=== PATIENT | female | born 1975 | race Hispanic/Latino ===

== ENCOUNTER 2019-03-14 09:27 | Emergency (ER) | payer OTHER ==
[2019-03-14] MEDS ORDERED: SODIUM CHLORIDE 0.9% 1000ML 1,000 ML IV ONE (09:40)
[2019-03-14] MEDS ORDERED: ONDANSETRON HCL 4 MG/2 ML VIAL ONE (09:45)
[2019-03-14 10:04] LABS: BASOPHILS % (AUTO) 1.1 % (0.0-5.0); EOSINOPHILS % (AUTO) 1.8 % (0.0-8.0); HEMATOCRIT 40.3 % (36-48); LYMPHOCYTES % (AUTO) 24.3 % (21.0-51.0); MEAN CORPUSCULAR HGB CONC 33.5 g/dL (32.0-36.0); MEAN CORPUSCULAR VOLUME 89.5 fL (79-99); MONOCYTES % (AUTO) 15.4 % (3.0-13.0); NEUTROPHILS % (AUTO) 57.4 % (40.0-77.0); PLATELET COUNT (AUTO) 207 K/uL (130-400); RED CELL DISTRIBUTION WIDTH 13.8 % (11.0-15.5); WHITE BLOOD COUNT (AUTO) 4.7 K/uL (4.8-10.8)
[2019-03-14 10:19] LABS: APPEARANCE,URINE Clear (CLEAR); BILIRUBIN,URINE Negative (NEGATIVE); COLOR,URINE Yellow (YELLOW); GLUCOSE, URINE (UA) Negative (NEGATIVE); KETONES,URINE Negative (NEGATIVE); LEUKOCYTE ESTERASE ,URINE Small (NEGATIVE); NITRATE,URINE Negative (NEGATIVE); OCCULT BLOOD,URINE Negative (NEGATIVE); PH,URINE 5.5 (5.0-8.0); PROTEIN,URINE Negative (NEGATIVE); UROBILINOGEN,URINE 0.2 mg/dL (0.2-1.0)
[2019-03-14 10:26] LABS: INR 0.95 (0.85-1.15); PARTIAL THROMBOPLASTIN TIME 30.3 SEC (26.3-35.5); PROTHROMBIN TIME 9.8 SEC (9.6-11.6)
[2019-03-14 10:28] LABS: BACTERIA,URINE Rare /HPF (None Seen); RBC,URINE 0-1 /HPF (0-1); WBC,URINE 0-1 /HPF (0-1)
[2019-03-14 10:29] LABS: POTASSIUM 3.7 mmol/L (3.5-5.1)
[2019-03-14 10:35] LABS: ALBUMIN 3.9 g/dL (3.5-5.0); BILIRUBIN,TOTAL 0.7 mg/dL (0.2-1.0); TOTAL PROTEIN, SERUM 8.6 g/dL (6.0-8.3)
[2019-03-14 11:37] LABS: B-TYPE NATRIURETIC PEPTIDE 16 pg/mL (0-100)
[2019-03-14] MEDS ORDERED: HYOSCYAMINE SULFATE 0.125 MG TAB.SUBL SL ONE (12:03)
[2019-03-14] MEDS ORDERED: ACETAMINOPHEN 325 MG TAB ONE (12:09)
[2019-03-14] MEDS ORDERED: TRAMADOL HCL 50 MG TABLET ONE (13:08)
== END 2019-03-14 13:38 | disposition home or self-care (01) ==
LOC: EDH 09:27
DX: A09 Infectious gastroenteritis and colitis, unspecified (principal); L93.0 Discoid lupus erythematosus; E07.9 Disorder of thyroid, unspecified; J45.909 Unspecified asthma, uncomplicated; I50.9 Heart failure, unspecified; Z88.1 Allergy status to other antibiotic agents; Z88.8 Allergy status to other drugs, medicaments and biological substances; Z88.4 Allergy status to anesthetic agent
CPT/HCPCS: 36415; 80053; 81001; 82150; 82550; 83690; 83880; 84484; 85025; 85610; 85651; 85730; 86140; 87804 ×2; 93005; 96361; 96374; 99285; J2405; J7030

== ENCOUNTER → 2019-03-19 | Outpatient (CLI) | payer OTHER | END | disposition home or self-care (01) | LOC: RAH 13:38 | PROVIDERS: ATTEND Internal Medicine | DX: I51.7 Cardiomegaly (principal); K76.89 Other specified diseases of liver | CPT/HCPCS: 71250 ==

== ENCOUNTER 2019-09-06 09:45 | Emergency (ER) | payer OTHER ==
[2019-09-06 10:10] LABS: APPEARANCE,URINE CLOUDY (CLEAR); BILIRUBIN,URINE NEGATIVE (NEGATIVE); COLOR,URINE YELLOW (YELLOW); GLUCOSE, URINE (UA) NEGATIVE (NEGATIVE); KETONES,URINE NEGATIVE (NEGATIVE); LEUKOCYTE ESTERASE ,URINE MODERATE (NEGATIVE); NITRATE,URINE POSITIVE (NEGATIVE); OCCULT BLOOD,URINE TRACE-INTACT (NEGATIVE); PH,URINE 5.5 (5.0-8.0); PROTEIN,URINE TRACE mg/dL (NEGATIVE); UROBILINOGEN,URINE 0.2 mg/dL (0.2-1.0)
[2019-09-06] MEDS ORDERED: KETOROLAC TROMETHAMINE 30MG/ML ONE (10:19)
[2019-09-06 10:27] LABS: HCG,QUAL RESULT NEGATIVE (NEGATIVE)
[2019-09-06 10:44] LABS: BACTERIA,URINE Rare /HPF (None Seen); RBC,URINE 0-1 /HPF (0-1); SQUAMOUS EPITHELIAL CELL,UR Rare /HPF (0-2); WBC,URINE 51-100 /HPF (0-1)
[2019-09-06 10:45] LABS: BASOPHILS % (AUTO) 0.2 % (0.0-5.0); EOSINOPHILS % (AUTO) 0.4 % (0.0-8.0); HEMATOCRIT 37.9 % (36-48); LYMPHOCYTES % (AUTO) 5.8 % (21.0-51.0); MEAN CORPUSCULAR HEMOGLOBIN 29.6 pg (27.0-33.0); MEAN CORPUSCULAR VOLUME 89.6 fL (79-99); MONOCYTES % (AUTO) 10.6 % (3.0-13.0); NEUTROPHILS % (AUTO) 82.8 % (40.0-77.0); PLATELET COUNT (AUTO) 242 K/uL (130-400); RED BLOOD CELL COUNT(AUTO) 4.23 MIL/uL (4.00-5.50); RED CELL DISTRIBUTION WIDTH 12.3 % (11.0-15.5); WHITE BLOOD COUNT (AUTO) 10.9 K/uL (4.8-10.8)
[2019-09-06 10:51] LABS: CREATININE 1.1 mg/dL (0.5-1.5); POTASSIUM 3.7 mmol/L (3.5-5.1)
[2019-09-06 11:05] LABS: THYROID STIMULATING HORMONE 8.78 uIU/mL (0.36-3.74)
[2019-09-06] MEDS ORDERED: CIPROFLOXACIN 500 MG PO SCH (12:00)
[2019-09-09] MEDS ORDERED: LEVO100T12 PO (11:55)
[2019-09-09] MEDS ORDERED: HYDR200T4 PO (11:55)
[2019-09-09] MEDS ORDERED: MYCO500T PO (11:55)
[2019-09-09] MEDS ORDERED: ERGO500014 PO (11:55)
[2019-09-09] MEDS ORDERED: TRAM50TA4 PO (11:55)
[2019-09-09] MEDS ORDERED: AEC81 PO (11:55)
[2019-09-09] MEDS ORDERED: CARV6.25 PO (11:55)
[2019-09-09] MEDS ORDERED: CYCL10TA7 PO (11:55)
[2019-09-09] MEDS ORDERED: PANT40TA25 PO (11:55)
[2019-09-09] MEDS ORDERED: ONDA4TAB10 PO (11:55)
[2019-09-09] MEDS ORDERED: CETI10TA57 PO (11:55)
== END 2019-09-06 12:09 | disposition home or self-care (01) ==
LOC: EDH 09:45
DX: N13.6 Pyonephrosis (principal); I50.9 Heart failure, unspecified; J45.909 Unspecified asthma, uncomplicated; M32.9 Systemic lupus erythematosus, unspecified; E07.9 Disorder of thyroid, unspecified; Z88.6 Allergy status to analgesic agent; Z88.8 Allergy status to other drugs, medicaments and biological substances
CPT/HCPCS: 36415; 74176; 80048; 81001; 81025; 84443; 85025; 87077; 87088; 87186; 96374; 99284; J1885

== ENCOUNTER 2019-09-09 07:53 | Inpatient (IN) | payer OTHER ==
[~2019-09-09] VITALS: Ht 157.5 cm; Wt 84.8 kg
[2019-09-09 08:39] LABS: BASOPHILS % (AUTO) 0.1 % (0.0-5.0); EOSINOPHILS % (AUTO) 0.8 % (0.0-8.0); HEMATOCRIT 33.4 % (36-48); MEAN CORPUSCULAR HEMOGLOBIN 29.1 pg (27.0-33.0); MEAN CORPUSCULAR HGB CONC 33.8 g/dL (32.0-36.0); MEAN CORPUSCULAR VOLUME 86.1 fL (79-99); MONOCYTES % (AUTO) 10.7 % (3.0-13.0); NEUTROPHILS % (AUTO) 85.8 % (40.0-77.0); PLATELET COUNT (AUTO) 234 K/uL (130-400); RED BLOOD CELL COUNT(AUTO) 3.88 MIL/uL (4.00-5.50); RED CELL DISTRIBUTION WIDTH 12.3 % (11.0-15.5); WHITE BLOOD COUNT (AUTO) 14.2 K/uL (4.8-10.8)
[2019-09-09] MEDS ORDERED: ACETAMINOPHEN EXTRA STRENGTH 500 MG TABLET ONE (08:40)
[2019-09-09] MEDS ORDERED: ONDANSETRON HCL 4 MG/2 ML VIAL ONE (08:40)
[2019-09-09] MEDS ORDERED: FAMOTIDINE/PF 20 MG/2 ML VIAL IV ONE (08:41)
[2019-09-09] MEDS ORDERED: TRAMADOL HCL 50 MG TABLET ONE (08:41)
[2019-09-09 08:42] LABS: APPEARANCE,URINE CLOUDY (CLEAR); BILIRUBIN,URINE NEGATIVE (NEGATIVE); COLOR,URINE YELLOW (YELLOW); GLUCOSE, URINE (UA) NEGATIVE (NEGATIVE); KETONES,URINE NEGATIVE (NEGATIVE); LEUKOCYTE ESTERASE ,URINE MODERATE (NEGATIVE); NITRATE,URINE POSITIVE (NEGATIVE); OCCULT BLOOD,URINE NEGATIVE (NEGATIVE); PROTEIN,URINE 100 mg/dL (NEGATIVE)
[2019-09-09 08:47] LABS: CARBON DIOXIDE 22 mmol/L (21-32); CHLORIDE 96 mmol/L (101-111); CREATININE 1.2 mg/dL (0.5-1.5); GLOMERULAR FILTR. RATE CALC 52 mL/min (>60); GLUCOSE,RANDOM 143 mg/dL (70-105); POTASSIUM 3.3 mmol/L (3.5-5.1); SODIUM SERUM 131 mmol/L (136-145); UREA NITROGEN, BLOOD 7 mg/dL (7-18)
[2019-09-09 08:48] LABS: INR 0.98 (0.85-1.15); PARTIAL THROMBOPLASTIN TIME 40.6 SEC (26.3-35.5); PROTHROMBIN TIME 10.6 SEC (9.6-11.6)
[2019-09-09 08:58] LABS: ALANINE AMINOTRANSFERASE 18 U/L (12-78); ALBUMIN 2.9 g/dL (3.5-5.0); ASPARTATE AMINOTRANSFERASE 21 U/L (10-37); BILIRUBIN,TOTAL 0.7 mg/dL (0.2-1.0); CREATINE KINASE, TOTAL 28 U/L (21-232); MYOGLOBIN 32 ng/mL (10-92); TROPONIN I < 0.04 ng/mL (0.00-0.06)
[2019-09-09 09:19] LABS: BACTERIA,URINE Many /HPF (None Seen); RBC,URINE 0-1 /HPF (0-1); WBC,URINE TNTC /HPF (0-1)
[2019-09-09] MEDS ORDERED: NITROFURANTOIN MONOHYD/M-CRYST 100 MG CAPSULE PO SCH (10:13)
[2019-09-09] MEDS ORDERED: NITROFURANTOIN MONOHYD/M-CRYST 100 MG CAPSULE PO ONE (10:15)
[2019-09-09] MEDS ORDERED: MEROPENEM 1 GM VIAL ONE (10:32)
[2019-09-09] MEDS ORDERED: DiphenhydrAMINE HCL 50 MG/ML VIAL ONE ×2 (10:47→13:49)
[2019-09-09] MEDS: SODIUM CHLORIDE 0.9% 1000ML 1,000 ML IV SCH (11:00)
[2019-09-09 11:35] VITALS: BP 113/75
[2019-09-09] MEDS ORDERED: CETI10TA57 PO ×2 (11:55)
[2019-09-09] MEDS ORDERED: CARV6.25 PO ×2 (11:55)
[2019-09-09] MEDS ORDERED: ERGO500014 PO ×2 (11:55)
[2019-09-09] MEDS ORDERED: TRAM50TA4 PO ×2 (11:55)
[2019-09-09] MEDS ORDERED: CYCL10TA7 PO ×2 (11:55)
[2019-09-09] MEDS ORDERED: LEVO100T12 PO ×2 (11:55)
[2019-09-09] MEDS ORDERED: HYDR200T4 PO ×2 (11:55)
[2019-09-09] MEDS ORDERED: MYCO500T PO ×2 (11:55)
[2019-09-09] MEDS ORDERED: ONDA4TAB10 PO ×2 (11:55)
[2019-09-09] MEDS ORDERED: AEC81 PO ×2 (11:55)
[2019-09-09] MEDS ORDERED: PANT40TA54 PO ×2 (11:55)
[2019-09-09] MEDS ORDERED: CYCLOBENZAPRINE HCL 10 MG TABLET PO PRN (13:30)
--- NOTE | 2019-09-09 13:40 | NUR ---
PATIENT C/O SEVERE CRAMPING TO BILATERAL LOWER EXT, POTASSIUM 3.3, PATIENT SHIVERING, TEMP 98.6, SPOKE WITH DR. SCHNEIDER NEW ORDER REPLACE POTASSIUM PER PROTOCOL,
--- NOTE | 2019-09-09 13:40 | NUR ---
PER DR. SCHNEIDER RESUME ALL HOME MEDS
[2019-09-09] MEDS ORDERED: POTASSIUM CHLORIDE 20MEQ/100ML 100 ML IV PRN (13:45)
[2019-09-09] MEDS ORDERED: DiphenhydrAMINE HCL 50 MG/ML VIAL IV SCH (13:45)
--- NOTE | 2019-09-09 13:45 | NUR ---
SPOKE WITH DR. SNWO MADE AWARE PATIENT C/O BILATERAL LOWER EXT CRAMPS, CHILLS, NO FEVER. PATIENT STATES SHE STARTED FEELING THIS WAY AFTER DOSE OF MERREM. PER DR. SNOW THIS IS NOT AN ADVERSE REACTION TO MERREM, GIVE BENADRYL 25 IV X 1, MERREM 1GM IV Q8, D/C MACROBID
[2019-09-09] MEDS ORDERED: PHARMACY COMMUNICATION MISC SCH (14:30)
[2019-09-09] MEDS: POTASSIUM CHLORIDE 20 MEQ ERTAB PO PRN ×2 (15:36→17:36)
[2019-09-09 16:00] VITALS: BP 106/66
[2019-09-09] MEDS: MEROPENEM 1 GM VIAL IVP SCH (17:38)
[2019-09-09 20:00] VITALS: BP 98/59
[2019-09-09] MEDS: PANTOPRAZOLE SODIUM 40 MG TABLET.DR PO SCH (20:25)
[2019-09-09] MEDS: CARVEDILOL 6.25 MG TABLET PO SCH (20:25)
[2019-09-09] MEDS: HYDROXYCHLOROQUINE SULFATE 200 MG TAB PO SCH (20:26)
[2019-09-09] MEDS: MYCOPHENOLATE MOFETIL 250 MG CAPSULE PO SCH (20:30)
[2019-09-09 23:42] VITALS: BP 90/57
[2019-09-10] MEDS: MEROPENEM 1 GM VIAL IVP SCH ×3 (02:03→18:04)
[2019-09-10 03:46] VITALS: BP 101/62
[2019-09-10 05:30] LABS: BASOPHILS % (AUTO) 0.2 % (0.0-5.0); EOSINOPHILS % (AUTO) 0.3 % (0.0-8.0); HEMATOCRIT 30.2 % (36-48); LYMPHOCYTES % (AUTO) 5.4 % (21.0-51.0); MEAN CORPUSCULAR HEMOGLOBIN 28.8 pg (27.0-33.0); MEAN CORPUSCULAR HGB CONC 32.8 g/dL (32.0-36.0); MEAN CORPUSCULAR VOLUME 87.8 fL (79-99); MONOCYTES % (AUTO) 14.5 % (3.0-13.0); NEUTROPHILS % (AUTO) 79.3 % (40.0-77.0); PLATELET COUNT (AUTO) 225 K/uL (130-400); RED BLOOD CELL COUNT(AUTO) 3.44 MIL/uL (4.00-5.50); RED CELL DISTRIBUTION WIDTH 12.9 % (11.0-15.5); WHITE BLOOD COUNT (AUTO) 12.2 K/uL (4.8-10.8)
[2019-09-10 05:33] LABS: POTASSIUM 3.5 mmol/L (3.5-5.1)
[2019-09-10] MEDS: ASPIRIN 81 MG EC TAB PO SCH (08:38)
[2019-09-10] MEDS: LEVOTHYROXINE 100 MCG TABLET PO SCH (08:39)
[2019-09-10] MEDS: HYDROXYCHLOROQUINE SULFATE 200 MG TAB PO SCH ×2 (08:39→20:53)
[2019-09-10] MEDS: CETIRIZINE HCL 5 MG TABLET PO SCH (08:39)
[2019-09-10] MEDS: CARVEDILOL 6.25 MG TABLET PO SCH ×2 (08:40→20:54)
[2019-09-10] MEDS ORDERED: PANTOPRAZOLE SODIUM 40 MG TABLET.DR PO SCH (09:00)
[2019-09-10] MEDS ORDERED: ONDANSETRON ODT 4 MG TAB PO SCH (09:00)
[2019-09-10 09:10] VITALS: BP 107/66
[2019-09-10] MEDS: MYCOPHENOLATE MOFETIL 250 MG CAPSULE PO SCH ×2 (10:22→20:53)
[2019-09-10] MEDS: POTASSIUM CHLORIDE 20 MEQ ERTAB PO PRN ×2 (10:47→15:43)
[2019-09-10] MEDS: TRAMADOL HCL 50 MG TABLET PO PRN ×2 (11:33→20:54)
[2019-09-10 11:45] VITALS: BP 104/69
[2019-09-10] MEDS ORDERED: ONDANSETRON ODT 4 MG TAB PO PRN (13:00)
[2019-09-10] MEDS ORDERED: LOPERAMIDE HCL 2 MG CAP PO SCH (13:45)
[2019-09-10] MEDS: METRONIDAZOLE 500 MG TABLET PO SCH ×2 (14:17→21:33)
[2019-09-10] MEDS: SODIUM CHLORIDE 0.9% 1000ML 1,000 ML IV SCH ×2 (14:24→22:42)
--- NOTE | 2019-09-10 15:17 | NUR ---
IR HOOD FROM IR CAME TO FLUSH ACCORDION WITH ANOTHER 10CC OF NS TOTAL OF 20CC. PLEASE TAKE INTO CONSIDERATION THE 20 ML OF NS WHEN TOTALING OUT.
[2019-09-10 16:00] VITALS: BP 104/65
[2019-09-10] MEDS ORDERED: ACETAMINOPHEN 325 MG TAB PO PRN (16:00)
[2019-09-10 20:00] VITALS: BP 96/63
[2019-09-10] MEDS: PANTOPRAZOLE SODIUM 40 MG TABLET.DR PO SCH (20:54)
[2019-09-10 23:48] VITALS: BP 113/70
[2019-09-11] MEDS: MEROPENEM 1 GM VIAL IVP SCH ×3 (02:05→17:57)
[2019-09-11 04:00] VITALS: BP 109/69
[2019-09-11 04:21] LABS: HEMATOCRIT 30.2 % (36-48); MEAN CORPUSCULAR HGB CONC 33.1 g/dL (32.0-36.0); MEAN CORPUSCULAR VOLUME 87.5 fL (79-99); PLATELET COUNT (AUTO) 268 K/uL (130-400); RED BLOOD CELL COUNT(AUTO) 3.45 MIL/uL (4.00-5.50); RED CELL DISTRIBUTION WIDTH 13.1 % (11.0-15.5); WHITE BLOOD COUNT (AUTO) 9.5 K/uL (4.8-10.8)
[2019-09-11 04:23] LABS: CREATININE 0.9 mg/dL (0.5-1.5); POTASSIUM 3.5 mmol/L (3.5-5.1)
[2019-09-11] MEDS: METRONIDAZOLE 500 MG TABLET PO SCH ×3 (05:03→20:29)
[2019-09-11] MEDS: POTASSIUM CHLORIDE 20 MEQ ERTAB PO PRN ×2 (05:03→11:03)
[2019-09-11] MEDS: LEVOTHYROXINE 100 MCG TABLET PO SCH (06:04)
[2019-09-11 08:00] VITALS: BP 121/68
[2019-09-11] MEDS: ENOXAPARIN SODIUM 30 MG/0.3 ML SQ SCH (09:00)
[2019-09-11] MEDS: SODIUM CHLORIDE 0.9% 1000ML 1,000 ML IV SCH ×2 (11:00→17:58)
[2019-09-11] MEDS: ASPIRIN 81 MG EC TAB PO SCH (11:01)
[2019-09-11] MEDS: CETIRIZINE HCL 5 MG TABLET PO SCH (11:01)
[2019-09-11] MEDS: CARVEDILOL 6.25 MG TABLET PO SCH ×2 (11:02→20:29)
[2019-09-11] MEDS: HYDROXYCHLOROQUINE SULFATE 200 MG TAB PO SCH ×2 (11:02→20:29)
[2019-09-11] MEDS: MYCOPHENOLATE MOFETIL 250 MG CAPSULE PO SCH ×2 (11:04→20:27)
[2019-09-11 12:00] VITALS: BP 112/72
--- NOTE | 2019-09-11 12:05 | NUR ---
INITIAL SW spoke with patient. She states she lives with spouse, Aaron Mckeon, . No home services. DME: [facility]. Patient states she needs help with ADL's and does not drive. Patient states her brother assists with transportation. PCP is Dr. Aviles. Pharmacy is [facility] located on [address]. DCP is home. Addendum: 09/11/19 at 1206 by UNA ANDERS SS Amended: Links added.
--- NOTE | 2019-09-11 13:42 | NUR ---
REFERRAL TO [facility] IN PROCESS CALL TO DR. Knight- ORDER TO CALL [facility] TO CHECK IF PICC NEEDED PANCHO REC'D FROM PATIENT AT BEDSIDE- CONTACT/DROPLET [employer]UTIONS CALL TO AMARILYS WHO STATED '7 IS MAX DAYS OF ABX IV'... 'IF PT HAS POOR VEINS WOULD PREFER PICC'. ADVISED AMARILYS THAT PATIENT NEEDS FIRST DOSE OF INVANZ HERE AFTER CHAIR/APPT CONFIRMED- WHICH WOULD MAKE 6 DAYS/DOSES @ [facility]-.. PKT SENT. CALL TO PATIENT AND EXPLAINED PROCESS. STATES THAT DAUGHTER ABLE TO GO TO REGISTER PATIENT AT [facility] [place]. DAUGHTERS CAN COME INSURANCE COLLECTOR ORDERS AND ID/INSURANCE CARE AFTER ENTRANCE. ADVISED PATIENT WILL BE TOUCH RE PROCESS Addendum: 09/11/19 at 1353 by QUINTON SHELTON RN Amended: Links added.
[2019-09-11] MEDS ORDERED: PHARMACY COMMUNICATION MISC SCH (14:45)
[2019-09-11] MEDS: GUAIFENESIN-DM 200/20 MG 10 ML PO PRN ×2 (15:18→22:40)
[2019-09-11 16:00] VITALS: BP 105/75
[2019-09-11 19:00] VITALS: BP 104/70
[2019-09-11] MEDS: PANTOPRAZOLE SODIUM 40 MG TABLET.DR PO SCH (20:29)
--- NOTE | 2019-09-11 21:07 | NUR ---
JENNIE ROUNDS JENNIE INFORMED OF PT C/O INCREASING COUGH. GAVE VERBAL ORDERS FOR CHEST XRAY IN THE AM AND DO DC FLUIDS. WILL INPUT ORDERS INTO [employer]. JENNIE WENT IN TO VISIT WITH PT, PT WAS IN THE RESTROOM. SAID HE WOULD COME BY TOMORROW.
[2019-09-11 23:54] VITALS: BP 105/65
[2019-09-12] MEDS: MEROPENEM 1 GM VIAL IVP SCH (01:54)
[2019-09-12 03:00] VITALS: BP 103/67
[2019-09-12] MEDS: METRONIDAZOLE 500 MG TABLET PO SCH ×2 (05:14→14:13)
[2019-09-12] MEDS: GUAIFENESIN-DM 200/20 MG 10 ML PO PRN (05:20)
[2019-09-12] MEDS: LEVOTHYROXINE 100 MCG TABLET PO SCH (05:47)
[2019-09-12 07:06] LABS: HEMATOCRIT 30.7 % (36-48); MEAN CORPUSCULAR HEMOGLOBIN 29.3 pg (27.0-33.0); MEAN CORPUSCULAR HGB CONC 33.2 g/dL (32.0-36.0); MEAN CORPUSCULAR VOLUME 88.2 fL (79-99); PLATELET COUNT (AUTO) 269 K/uL (130-400); RED BLOOD CELL COUNT(AUTO) 3.48 MIL/uL (4.00-5.50); RED CELL DISTRIBUTION WIDTH 13.1 % (11.0-15.5); WHITE BLOOD COUNT (AUTO) 6.4 K/uL (4.8-10.8)
[2019-09-12 07:33] LABS: CREATININE 0.9 mg/dL (0.5-1.5); POTASSIUM 3.6 mmol/L (3.5-5.1)
[2019-09-12 07:39] LABS: BASOPHILS % (MANUAL) 2 % (0-2); EOSINOPHILS % (MANUAL) 1 % (1-6); LYMPHOCYTES % (MANUAL) 17 % (22-44); MONOCYTES % (MANUAL) 13 % (2-9); SEGMENTED NEUTROPHILS % 67 % (40-70)
[2019-09-12 07:40] LABS: MAN.DIFF COMMENT-IMPRESSION MANUAL DIFFERENTIAL; PLATELET MORPHOLOGY COMMENT ADEQUATE
[2019-09-12 08:00] VITALS: BP 103/68
[2019-09-12] MEDS ORDERED: PHARMACY COMMUNICATION MISC SCH (09:00)
--- NOTE | 2019-09-12 09:00 | NUR ---
[facility] SET UP APPOINTMENT TIME OF 10 AM SUNDAY---- DAUGHTER AND PATIENT AWARE. INVANZ FIRST DOSE TO BE GIVEN HERE RAYO GORMAN AWARE. DISCHARGE PENDING
[2019-09-12] MEDS ORDERED: INVANZ 1GM+NS 50ML IVPB 50 ML IV SCH (09:15)
[2019-09-12] MEDS: MYCOPHENOLATE MOFETIL 250 MG CAPSULE PO SCH (09:15)
[2019-09-12] MEDS: ENOXAPARIN SODIUM 30 MG/0.3 ML SQ SCH ×2 (09:16→09:49)
[2019-09-12] MEDS: CETIRIZINE HCL 5 MG TABLET PO SCH (09:17)
[2019-09-12] MEDS: ASPIRIN 81 MG EC TAB PO SCH (09:17)
[2019-09-12] MEDS: CARVEDILOL 6.25 MG TABLET PO SCH (09:18)
[2019-09-12] MEDS: HYDROXYCHLOROQUINE SULFATE 200 MG TAB PO SCH (09:47)
[2019-09-12 11:00] VITALS: BP 98/70
[2019-09-12 16:00] VITALS: BP 102/70
--- NOTE | 2019-09-12 16:30 | NUR ---
D/C PT LEFT VIA WHEELCHAIR IN PVT CAR/ D/C INSTRUCTIONS GIVEN TO PATIENT. NO COMPLICATIONS UPON D/C. PT V/S STABLE.
[2019-09-16] MEDS ORDERED: ERGOCALCIFEROL (VITAMIN D2) 50,000 UNIT CAPSULE PO SCH (14:15)
== END 2019-09-12 16:30 | disposition home or self-care (01) | DRG 872 ==
LOC: EDH 07:53 → OBSVTOIN 09:52 → EDHIP 09:52 → 3AH 11:06
PROVIDERS: ADMIT Internal Medicine; ATTEND Internal Medicine
DX: A41.50 Gram-negative sepsis, unspecified (principal); Z16.12 Extended spectrum beta lactamase (ESBL) resistance; Z16.24 Resistance to multiple antibiotics; E87.1 Hypo-osmolality and hyponatremia; N12 Tubulo-interstitial nephritis, not specified as acute or chronic; N30.90 Cystitis, unspecified without hematuria; M32.9 Systemic lupus erythematosus, unspecified; K42.9 Umbilical hernia without obstruction or gangrene; E03.9 Hypothyroidism, unspecified; E66.9 Obesity, unspecified; I11.9 Hypertensive heart disease without heart failure; J45.909 Unspecified asthma, uncomplicated; B96.20 Unspecified Escherichia coli [E. coli] as the cause of diseases classified elsewhere; Z68.34 Body mass index [BMI] 34.0-34.9, adult; Z88.1 Allergy status to other antibiotic agents; Z88.8 Allergy status to other drugs, medicaments and biological substances
CPT/HCPCS: 36415; 71045; 74176; 80048; 80053; 81001; 81025; 82550; 83605; 83874; 84145; 84443; 84484; 85025; 85027; 85610; 85730; 87040; 87077; 87088; 87177; 87186; 87324; 93005; 96374; G0378; J1200; J1335; J1650; J1885; J2185; J2405; J3490; J7030; J7517